=== PATIENT | female | born 1975 | race Caucasian/White ===

== ENCOUNTER 2021-06-07 20:56 | Inpatient (IN) ==
[2021-06-07 21:52] LABS: Basophils # 0.1 K/mcL (0.0-0.2); Basophils % 0.8 %; Eosinophils # 0.6 K/mcL (0.0-0.6); Eosinophils % 4.3 %; Hematocrit 31.3 % (35.3-44.9); Hemoglobin 10.9 g/dL (11.5-15.4); Immature Granulocytes % 0.3 % (0-4); Lymphocytes # 1.8 K/mcL (0.6-4.6); Lymphocytes % 13.3 %; Mean Corpuscular HGB Conc 34.8 g/dL (31.6-35.5); Mean Corpuscular Hemoglobin 30.1 pg (28.0-33.3); Mean Corpuscular Volume 86.5 fL (83.0-100.0); Monocytes # 0.8 K/mcL (0.0-1.3); Monocytes % 5.9 %; Neutrophils # 10.1 K/mcL (1.6-8.9); Platelet Count 371 K/mcL (140-400); Red Blood Count 3.62 M/mcL (3.82-4.97); Segmented Neutrophils % 75.4 %; White Blood Count 13.4 K/mcL (4.3-11.1)
[2021-06-07 22:14] LABS: Alanine Aminotransferase 15 Units/L (7-52); Albumin 3.7 g/dL (3.5-5.7); Albumin/Globulin Ratio 1.3 (1.1-2.2); Alkaline Phosphatase 65 Units/L (34-104); Aspartate Amino Transferase 11 Units/L (13-39); BUN/Creatinine Ratio 6 (6-26); Bilirubin,Indirect 0.4 mg/dL (0.0-1.0); Bilirubin,Total 0.4 mg/dL (0.3-1.0); Blood Urea Nitrogen 44 mg/dL (6-20); Calcium 8.3 mg/dL (8.6-10.3); Carbon Dioxide 17 mEq/L (23-29); Chloride 92 mEq/L (98-107); Globulin 2.8 g/dL (2.4-3.5); Glucose 164 mg/dL (70-105); Osmolality,Calculated 273 (280-300); Sodium 124 mEq/L (136-145); Total Protein 6.5 g/dL (6.4-8.9); eGFR For African Americans 8 (> 60); eGFR For Non-African Americans 6 (> 60)
[2021-06-07 22:15] LABS: Troponin I < 0.03 ng/mL (< 0.04)
[2021-06-07 22:32] LABS: Lipase 34 Units/L (11-82)
[2021-06-07 22:53] LABS: Adenovirus Not Detected (Not Detect); Bordetella Pertussis Not Detected (Not Detect); Chlamydophila pneumoniae Not Detected (Not Detect); Coronavirus 229E Not Detected (Not Detect); Coronavirus HKU1 Not Detected (Not Detect); Coronavirus NL63 Not Detected (Not Detect); Coronavirus OC43 Not Detected (Not Detect); Human Metapneumovirus Not Detected (Not Detect); Human Rhinovirus/Enterovirus Not Detected (Not Detect); Influenza A Subtype 2009 H1 Not Detected (Not Detect); Influenza B Not Detected (Not Detect); Mycoplasma pneumoniae Not Detected (Not Detect); Parainfluenza Virus 1 Not Detected (Not Detect); Parainfluenza Virus 2 Not Detected (Not Detect); Parainfluenza Virus 3 Not Detected (Not Detect); Parainfluenza Virus 4 Not Detected (Not Detect); Respiratory Syncytial Virus Not Detected (Not Detect); SARS-CoV-2 Not Detected (Not Detect)
[2021-06-07] MEDS ORDERED: Furosemide 20 MG/2 ML VIAL IVP ONE (22:59)
[2021-06-07] MEDS ORDERED: Ondansetron 4 MG/2 ML VIAL IVP PRN (23:44)
[2021-06-07] MEDS ORDERED: Naloxone 0.4 MG/ML INJ IVP PRN (23:44)
[2021-06-07] MEDS ORDERED: *HR* Dextrose 50 % in Water (Vial) 50 ML VIAL IVP PRN (23:47)
[2021-06-07] MEDS ORDERED: Dextrose Gel 15 GM/37.5 ML TUBE PO PRN ×2 (23:47)
[2021-06-07] MEDS ORDERED: D5% in Water 1,000 ML IVC PRN (23:47)
[2021-06-08] LABS: Bacteria,Urine Few per hpf (None-Few); Bilirubin,Urine Negative (Negative); Blood,Urine Moderate (Negative); Clarity,Urine Ex.Turbid (Clear); Color,Urine Yellow (Yellow); Glucose,Urine (UA) 300 mg/dL (Normal); Ketones,Urine Negative (Negative); Leukocyte Esterase,Urine Large (Negative); Nitrite,Urine Negative (Negative); PH,Urine 6.5 pH Units (5.0-8.0); Protein,Urine >=300 mg/dL (Neg-Trace); Specific Gravity,Urine 1.012 (1.010-1.025); Squamous Epithelial Cell,Urine Moderate per hpf (None-Few); Urobilinogen,Urine Normal (Normal); WBC,Urine TNTC per hpf (0-3)
[2021-06-08 00:08] LABS: Sodium, Urine 27.1 mEq/L
[2021-06-08] MEDS ORDERED: Perflutren Lipid Microsphere 1.3 ML in 0.9 % Sodium Chloride 8.7 ML IVP PRN (04:37)
[2021-06-08 05:22] LABS: Basophils # 0.1 K/mcL (0.0-0.2); Basophils % 0.8 %; Eosinophils # 0.2 K/mcL (0.0-0.6); Eosinophils % 1.9 %; Hemoglobin 10.5 g/dL (11.5-15.4); Immature Granulocytes % 0.5 % (0-4); Lymphocytes # 1.8 K/mcL (0.6-4.6); Lymphocytes % 13.8 %; Mean Corpuscular Hemoglobin 30.3 pg (28.0-33.3); Mean Corpuscular Volume 86.7 fL (83.0-100.0); Mean Platelet Volume 10.3 fL (9.4-12.4); Monocytes # 0.8 K/mcL (0.0-1.3); Monocytes % 5.8 %; Platelet Count 376 K/mcL (140-400); Red Blood Count 3.46 M/mcL (3.82-4.97); Segmented Neutrophils % 77.2 %
[2021-06-08 05:23] LABS: Protein/Creatinine Ratio,Urine 9.33 mg/mg (0.00-0.20)
[2021-06-08] MEDS: *HR* Heparin 5,000 UNIT/ML VIAL SQ SCH ×3 (05:32→21:43)
[2021-06-08] MEDS: Acetaminophen 325 MG TABLET PO PRN (05:38)
[2021-06-08 05:40] LABS: Calcium 8.9 mg/dL (8.6-10.3); Magnesium 1.9 mg/dL (1.6-2.6); Phosphorous 4.7 mg/dL (2.7-4.5); Uric Acid 6.5 mg/dL (2.3-7.6)
[2021-06-08] MEDS ORDERED: 0.9 % Sodium Chloride 250 ML IVC PRN (08:31)
[2021-06-08 08:33] LABS: Estimated Average Glucose 171 mg/dl; Hemoglobin A1C 7.6 %
[2021-06-08] MEDS ORDERED: 0.9 % Sodium Chloride 1,000 ML PRIME SCH (08:45)
[2021-06-08] MEDS ORDERED: Furosemide 40 MG/4 ML VIAL IVP SCH (09:00)
[2021-06-08] MEDS: Nicotine 21 MG PATCH.TD24 TD SCH (09:41)
[2021-06-08] MEDS: Insulin LISPRO 300 UNITS/3 ML VIAL SUBQ SCH ×4 (09:41→21:38)
[2021-06-08] MEDS: cefTRIAXone 1,000 MG in Water for inj. (sterile) 10 ML IVP SCH (09:41)
[2021-06-08 10:28] LABS: Hepatitis B Surface Antibody < 3.10 mIU/mL
[2021-06-08 10:39] LABS: Hepatitis B Surface Antigen Nonreactive (Nonreactive)
[2021-06-08 11:08] LABS: Hepatitis B Core IgM Nonreactive (Nonreactive)
[2021-06-08] MEDS ORDERED: Heparin 1,000 UNITS/500 mL 500 ML ONE (12:55)
[2021-06-08] MEDS ORDERED: Lidocaine/EPI 1:100k 1% 50 ML VIAL ONE (12:55)
[2021-06-08] MEDS ORDERED: *HR* Heparin 5,000 UNIT/ML VIAL ONE (13:26)
[2021-06-08] MEDS ORDERED: *HR* Heparin 10,000 UNIT/10 ML VIAL IV PRN (15:23)
[2021-06-08 16:29] LABS: Phosphorous 3.4 mg/dL (2.7-4.5); Uric Acid 4.1 mg/dL (2.3-7.6)
[2021-06-08] MEDS: Isosorbide MONOnitrate (24 HR) 30 MG TAB.ER.24H PO SCH (16:30)
[2021-06-08] MEDS: hydrALAZINE 25 MG TABLET PO SCH (16:30)
[2021-06-09] MEDS: Acetaminophen 325 MG TABLET PO PRN (01:21)
[2021-06-09] MEDS: hydrALAZINE 25 MG TABLET PO SCH ×3 (01:21→16:47)
[2021-06-09 05:44] LABS: Hematocrit 27.5 % (35.3-44.9); Hemoglobin 9.1 g/dL (11.5-15.4); Mean Corpuscular HGB Conc 33.1 g/dL (31.6-35.5); Mean Corpuscular Hemoglobin 29.1 pg (28.0-33.3); Mean Corpuscular Volume 87.9 fL (83.0-100.0); Platelet Count 323 K/mcL (140-400); Red Blood Count 3.13 M/mcL (3.82-4.97); Red Cell Distribution Width 13.3 % (11.5-14.5); White Blood Count 7.9 K/mcL (4.3-11.1)
[2021-06-09 05:48] LABS: Basophils # 0.1 K/mcL (0.0-0.2); Basophils % 1.2 %; Eosinophils # 0.6 K/mcL (0.0-0.6); Eosinophils % 7.5 %; Hematocrit 27.6 % (35.3-44.9); Hemoglobin 9.2 g/dL (11.5-15.4); Immature Granulocytes % 0.3 % (0-4); Lymphocytes # 1.3 K/mcL (0.6-4.6); Lymphocytes % 17.4 %; Mean Corpuscular HGB Conc 33.3 g/dL (31.6-35.5); Mean Corpuscular Hemoglobin 29.4 pg (28.0-33.3); Mean Corpuscular Volume 88.2 fL (83.0-100.0); Monocytes # 0.7 K/mcL (0.0-1.3); Neutrophils # 4.9 K/mcL (1.6-8.9); Platelet Count 319 K/mcL (140-400); Red Blood Count 3.13 M/mcL (3.82-4.97); Red Cell Distribution Width 13.2 % (11.5-14.5); Segmented Neutrophils % 64.6 %; White Blood Count 7.6 K/mcL (4.3-11.1)
[2021-06-09 06:12] LABS: Calcium 8.1 mg/dL (8.6-10.3)
[2021-06-09] MEDS: *HR* Heparin 5,000 UNIT/ML VIAL SQ SCH ×3 (06:36→20:56)
[2021-06-09] MEDS: Insulin LISPRO 300 UNITS/3 ML VIAL SUBQ SCH ×4 (06:40→20:57)
[2021-06-09] MEDS ORDERED: *HR* Heparin 10,000 UNIT/10 ML VIAL IV PRN (07:19)
[2021-06-09] MEDS ORDERED: 0.9 % Sodium Chloride 250 ML IVC PRN (07:19)
[2021-06-09] MEDS ORDERED: 0.9 % Sodium Chloride 1,000 ML PRIME SCH (07:30)
[2021-06-09] MEDS: Isosorbide MONOnitrate (24 HR) 30 MG TAB.ER.24H PO SCH (07:43)
[2021-06-09] MEDS: Nicotine 21 MG PATCH.TD24 TD SCH (07:43)
[2021-06-09] MEDS: cefTRIAXone 1,000 MG in Water for inj. (sterile) 10 ML IVP SCH (07:44)
[2021-06-09] MEDS: calcitrioL 0.25 MCG CAPSULE PO SCH (12:26)
[2021-06-09] MEDS ORDERED: Cyanocobalamin (B-12) 1,000 MCG/ML VIAL IM ONE (13:00)
[2021-06-10] MEDS: hydrALAZINE 25 MG TABLET PO SCH ×3 (00:13→13:34)
[2021-06-10 05:17] LABS: Hematocrit 28.4 % (35.3-44.9); Hemoglobin 9.6 g/dL (11.5-15.4); Mean Corpuscular HGB Conc 33.8 g/dL (31.6-35.5); Mean Corpuscular Hemoglobin 30.3 pg (28.0-33.3); Mean Corpuscular Volume 89.6 fL (83.0-100.0); Mean Platelet Volume 9.9 fL (9.4-12.4); Platelet Count 344 K/mcL (140-400); Red Blood Count 3.17 M/mcL (3.82-4.97); Red Cell Distribution Width 13.3 % (11.5-14.5); White Blood Count 7.5 K/mcL (4.3-11.1)
[2021-06-10 05:33] LABS: Potassium 3.7 mEq/L (3.5-5.1)
[2021-06-10] MEDS: *HR* Heparin 5,000 UNIT/ML VIAL SQ SCH ×3 (06:02→20:36)
[2021-06-10] MEDS: Insulin LISPRO 300 UNITS/3 ML VIAL SUBQ SCH ×4 (07:39→21:00)
[2021-06-10] MEDS: Aspirin Enteric Coated 81 MG Tablet PO SCH (07:44)
[2021-06-10] MEDS: calcitrioL 0.25 MCG CAPSULE PO SCH (08:01)
[2021-06-10] MEDS: Nicotine 21 MG PATCH.TD24 TD SCH (08:01)
[2021-06-10] MEDS ORDERED: *HR* Heparin 10,000 UNIT/10 ML VIAL IV PRN (08:42)
[2021-06-10] MEDS ORDERED: 0.9 % Sodium Chloride 250 ML IVC PRN (08:42)
[2021-06-10] MEDS ORDERED: 0.9 % Sodium Chloride 1,000 ML PRIME SCH (08:45)
[2021-06-10] MEDS ORDERED: carvediloL 6.25 MG TABLET PO SCH (09:00)
[2021-06-10] MEDS: cefTRIAXone 1,000 MG in Water for inj. (sterile) 10 ML IVP SCH (13:34)
[2021-06-10] MEDS: Isosorbide MONOnitrate (24 HR) 30 MG TAB.ER.24H PO SCH (13:34)
[2021-06-10] MEDS: carvediloL 6.25 MG TABLET PO SCH (16:25)
[2021-06-11 02:45] LABS: Hematocrit 30.4 % (35.3-44.9); Hemoglobin 10.1 g/dL (11.5-15.4); Mean Corpuscular HGB Conc 33.2 g/dL (31.6-35.5); Mean Corpuscular Hemoglobin 30.1 pg (28.0-33.3); Mean Corpuscular Volume 90.7 fL (83.0-100.0); Mean Platelet Volume 9.6 fL (9.4-12.4); Platelet Count 343 K/mcL (140-400); Red Blood Count 3.35 M/mcL (3.82-4.97); Red Cell Distribution Width 13.3 % (11.5-14.5)
[2021-06-11 03:01] LABS: Calcium 8.3 mg/dL (8.6-10.3); Potassium 3.8 mEq/L (3.5-5.1)
[2021-06-11] MEDS: *HR* Heparin 5,000 UNIT/ML VIAL SQ SCH ×3 (05:19→20:45)
[2021-06-11] MEDS: hydrALAZINE 25 MG TABLET PO SCH ×4 (05:24→23:58)
[2021-06-11] MEDS: Aspirin Enteric Coated 81 MG Tablet PO SCH (08:58)
[2021-06-11 08:59] LABS: Thyroid Stimulating Hormone 3.919 mcIU/mL (0.340-5.600)
[2021-06-11] MEDS: carvediloL 6.25 MG TABLET PO SCH ×2 (08:59→17:00)
[2021-06-11] MEDS: Isosorbide MONOnitrate (24 HR) 30 MG TAB.ER.24H PO SCH (08:59)
[2021-06-11] MEDS: calcitrioL 0.25 MCG CAPSULE PO SCH (08:59)
[2021-06-11] MEDS: cefTRIAXone 1,000 MG in Water for inj. (sterile) 10 ML IVP SCH (08:59)
[2021-06-11] MEDS: Nicotine 21 MG PATCH.TD24 TD SCH (09:02)
[2021-06-11] MEDS: Insulin LISPRO 300 UNITS/3 ML VIAL SUBQ SCH ×4 (09:05→20:45)
[2021-06-12] MEDS: *HR* Heparin 5,000 UNIT/ML VIAL SQ SCH ×3 (05:25→21:26)
[2021-06-12] MEDS ORDERED: 0.9 % Sodium Chloride 250 ML IVC PRN (07:39)
[2021-06-12] MEDS ORDERED: *HR* Heparin 10,000 UNIT/10 ML VIAL IV PRN (07:39)
[2021-06-12 08:40] LABS: Hematocrit 33.2 % (35.3-44.9); Hemoglobin 10.4 g/dL (11.5-15.4); Mean Corpuscular HGB Conc 31.3 g/dL (31.6-35.5); Mean Corpuscular Volume 92.5 fL (83.0-100.0); Mean Platelet Volume 9.8 fL (9.4-12.4); Platelet Count 369 K/mcL (140-400); Red Blood Count 3.59 M/mcL (3.82-4.97); Red Cell Distribution Width 13.4 % (11.5-14.5); White Blood Count 8.4 K/mcL (4.3-11.1)
[2021-06-12] MEDS: cefTRIAXone 1,000 MG in Water for inj. (sterile) 10 ML IVP SCH ×2 (09:00→18:13)
[2021-06-12 09:06] LABS: Chol/HDL Ratio 4.4 (0-4.9)
[2021-06-12 09:09] LABS: Calcium 8.7 mg/dL (8.6-10.3); Potassium 4.1 mEq/L (3.5-5.1)
[2021-06-12] MEDS: Isosorbide MONOnitrate (24 HR) 30 MG TAB.ER.24H PO SCH (09:10)
[2021-06-12] MEDS: Aspirin Enteric Coated 81 MG Tablet PO SCH (09:10)
[2021-06-12] MEDS: calcitrioL 0.25 MCG CAPSULE PO SCH (09:10)
[2021-06-12] MEDS: carvediloL 6.25 MG TABLET PO SCH ×2 (09:11→18:11)
[2021-06-12] MEDS: hydrALAZINE 25 MG TABLET PO SCH ×2 (09:11→18:11)
[2021-06-12] MEDS: Insulin LISPRO 300 UNITS/3 ML VIAL SUBQ SCH ×4 (09:11→21:26)
[2021-06-12] MEDS: Nicotine 21 MG PATCH.TD24 TD SCH (09:12)
[2021-06-12 13:45] LABS: INR 1.1; Prothrombin Time 12.2 Seconds (9.4-12.1)
[2021-06-12] MEDS ORDERED: 0.9 % Sodium Chloride 500 ML ONE (14:23)
[2021-06-12] MEDS ORDERED: Heparin 1,000 UNITS/500 mL 500 ML ONE (14:34)
[2021-06-12] MEDS ORDERED: Lidocaine/EPI 1:100k 1% 50 ML VIAL ONE (14:34)
[2021-06-12] MEDS ORDERED: *HR* Heparin 5,000 UNIT/ML VIAL ONE (14:41)
[2021-06-12] MEDS ORDERED: *HR* Midazolam HCl 2 MG/2 ML VIAL ONE (14:41)
[2021-06-12] MEDS ORDERED: *HR* Midazolam HCl 2 MG/2 ML VIAL IVP ONE (14:41)
[2021-06-12] MEDS ORDERED: *HR* FentaNYL (PF) 100 MCG/2 ML VIAL IVP ONE (14:41)
[2021-06-12] MEDS ORDERED: *HR* FentaNYL (PF) 100 MCG/2 ML VIAL ONE (14:41)
[2021-06-12] MEDS: Acetaminophen 325 MG TABLET PO PRN (21:26)
[2021-06-13] MEDS: hydrALAZINE 25 MG TABLET PO SCH ×3 (00:04→17:05)
[2021-06-13] MEDS: *HR* Heparin 5,000 UNIT/ML VIAL SQ SCH ×3 (06:48→21:14)
[2021-06-13 07:12] LABS: Hematocrit 35.1 % (35.3-44.9); Mean Corpuscular HGB Conc 31.3 g/dL (31.6-35.5); Mean Corpuscular Hemoglobin 29.3 pg (28.0-33.3); Mean Corpuscular Volume 93.4 fL (83.0-100.0); Mean Platelet Volume 9.8 fL (9.4-12.4); Platelet Count 372 K/mcL (140-400); Red Blood Count 3.76 M/mcL (3.82-4.97); Red Cell Distribution Width 13.5 % (11.5-14.5); White Blood Count 8.5 K/mcL (4.3-11.1)
[2021-06-13 07:34] LABS: Calcium 8.9 mg/dL (8.6-10.3); Potassium 4.2 mEq/L (3.5-5.1)
[2021-06-13] MEDS: Nicotine 21 MG PATCH.TD24 TD SCH (11:00)
[2021-06-13] MEDS: carvediloL 6.25 MG TABLET PO SCH ×2 (11:01→17:05)
[2021-06-13] MEDS: calcitrioL 0.25 MCG CAPSULE PO SCH (11:01)
[2021-06-13] MEDS: Isosorbide MONOnitrate (24 HR) 30 MG TAB.ER.24H PO SCH (11:01)
[2021-06-13] MEDS: Aspirin Enteric Coated 81 MG Tablet PO SCH (11:02)
[2021-06-13] MEDS: Insulin LISPRO 300 UNITS/3 ML VIAL SUBQ SCH ×4 (11:02→21:13)
[2021-06-13] MEDS ORDERED: *HR* LORazepam 2 MG/ML VIAL IVP PRN ×2 (16:55→21:54)
[2021-06-14] MEDS: hydrALAZINE 25 MG TABLET PO SCH ×4 (01:29→23:21)
[2021-06-14 02:13] LABS: Hematocrit 31.6 % (35.3-44.9); Hemoglobin 9.9 g/dL (11.5-15.4); Mean Corpuscular HGB Conc 31.3 g/dL (31.6-35.5); Mean Corpuscular Hemoglobin 29.2 pg (28.0-33.3); Mean Corpuscular Volume 93.2 fL (83.0-100.0); Mean Platelet Volume 9.6 fL (9.4-12.4); Platelet Count 343 K/mcL (140-400); Red Blood Count 3.39 M/mcL (3.82-4.97); Red Cell Distribution Width 13.3 % (11.5-14.5); White Blood Count 9.3 K/mcL (4.3-11.1)
[2021-06-14 02:14] LABS: Basophils # 0.1 K/mcL (0.0-0.2); Basophils % 1.3 %; Eosinophils # 0.7 K/mcL (0.0-0.6); Eosinophils % 7.8 %; Hematocrit 31.9 % (35.3-44.9); Hemoglobin 10.1 g/dL (11.5-15.4); Immature Granulocytes % 0.3 % (0-4); Lymphocytes # 2.3 K/mcL (0.6-4.6); Lymphocytes % 24.7 %; Mean Corpuscular HGB Conc 31.7 g/dL (31.6-35.5); Mean Corpuscular Hemoglobin 29.4 pg (28.0-33.3); Mean Corpuscular Volume 92.7 fL (83.0-100.0); Mean Platelet Volume 9.6 fL (9.4-12.4); Monocytes # 0.9 K/mcL (0.0-1.3); Monocytes % 9.5 %; Neutrophils # 5.2 K/mcL (1.6-8.9); Platelet Count 340 K/mcL (140-400); Red Blood Count 3.44 M/mcL (3.82-4.97); Red Cell Distribution Width 13.3 % (11.5-14.5); Segmented Neutrophils % 56.4 %; White Blood Count 9.2 K/mcL (4.3-11.1)
[2021-06-14 02:28] LABS: Calcium 8.7 mg/dL (8.6-10.3); Potassium 3.9 mEq/L (3.5-5.1)
[2021-06-14 02:31] LABS: Albumin 3.4 g/dL (3.5-5.7); Albumin/Globulin Ratio 1.4 (1.1-2.2); Bilirubin,Total 0.3 mg/dL (0.3-1.0); Calcium 8.6 mg/dL (8.6-10.3); Globulin 2.5 g/dL (2.4-3.5); Potassium 3.8 mEq/L (3.5-5.1); Total Protein 5.9 g/dL (6.4-8.9)
[2021-06-14] MEDS: *HR* Heparin 5,000 UNIT/ML VIAL SQ SCH ×3 (05:24→21:31)
[2021-06-14] MEDS: Insulin LISPRO 300 UNITS/3 ML VIAL SUBQ SCH ×4 (09:12→21:52)
[2021-06-14] MEDS: carvediloL 6.25 MG TABLET PO SCH ×2 (09:13→16:15)
[2021-06-14] MEDS: calcitrioL 0.25 MCG CAPSULE PO SCH (09:13)
[2021-06-14] MEDS: Isosorbide MONOnitrate (24 HR) 30 MG TAB.ER.24H PO SCH (09:13)
[2021-06-14] MEDS: Aspirin Enteric Coated 81 MG Tablet PO SCH (09:13)
[2021-06-14] MEDS: Nicotine 21 MG PATCH.TD24 TD SCH (09:13)
[2021-06-15] MEDS: *HR* Heparin 5,000 UNIT/ML VIAL SQ SCH ×3 (05:23→20:15)
[2021-06-15 05:31] LABS: Hemoglobin 10.2 g/dL (11.5-15.4); Mean Corpuscular HGB Conc 32.9 g/dL (31.6-35.5); Mean Corpuscular Hemoglobin 30.1 pg (28.0-33.3); Mean Corpuscular Volume 91.4 fL (83.0-100.0); Platelet Count 397 K/mcL (140-400); Red Blood Count 3.39 M/mcL (3.82-4.97); Red Cell Distribution Width 13.3 % (11.5-14.5); White Blood Count 10.3 K/mcL (4.3-11.1)
[2021-06-15 05:47] LABS: Calcium 8.7 mg/dL (8.6-10.3)
[2021-06-15] MEDS ORDERED: 0.9 % Sodium Chloride 250 ML IVC PRN (07:32)
[2021-06-15] MEDS ORDERED: *HR* Heparin 10,000 UNIT/10 ML VIAL IV PRN (07:32)
[2021-06-15] MEDS ORDERED: 0.9 % Sodium Chloride 1,000 ML PRIME SCH (07:45)
[2021-06-15] MEDS: Insulin LISPRO 300 UNITS/3 ML VIAL SUBQ SCH ×4 (08:06→22:00)
[2021-06-15] MEDS: carvediloL 6.25 MG TABLET PO SCH ×2 (08:38→18:33)
[2021-06-15] MEDS: calcitrioL 0.25 MCG CAPSULE PO SCH (08:39)
[2021-06-15] MEDS: Isosorbide MONOnitrate (24 HR) 30 MG TAB.ER.24H PO SCH (08:39)
[2021-06-15] MEDS: Nicotine 21 MG PATCH.TD24 TD SCH (08:39)
[2021-06-15] MEDS: Aspirin Enteric Coated 81 MG Tablet PO SCH (08:39)
[2021-06-15] MEDS: hydrALAZINE 25 MG TABLET PO SCH ×2 (08:39→18:33)
[2021-06-16] MEDS: hydrALAZINE 25 MG TABLET PO SCH ×2 (01:20→09:38)
[2021-06-16 01:55] LABS: Hematocrit 32.3 % (35.3-44.9); Hemoglobin 10.8 g/dL (11.5-15.4); Mean Corpuscular HGB Conc 33.4 g/dL (31.6-35.5); Mean Corpuscular Hemoglobin 30.3 pg (28.0-33.3); Mean Corpuscular Volume 90.5 fL (83.0-100.0); Mean Platelet Volume 9.6 fL (9.4-12.4); Platelet Count 373 K/mcL (140-400); Red Blood Count 3.57 M/mcL (3.82-4.97); Red Cell Distribution Width 13.2 % (11.5-14.5); White Blood Count 11.2 K/mcL (4.3-11.1)
[2021-06-16 02:16] LABS: Calcium 8.5 mg/dL (8.6-10.3); Potassium 3.5 mEq/L (3.5-5.1)
[2021-06-16 05:13] VITALS: PULSE 84; TEMP 97.9; O2SAT 97
[2021-06-16] MEDS: *HR* Heparin 5,000 UNIT/ML VIAL SQ SCH (06:15)
[2021-06-16] MEDS ORDERED: ALPRAZolam 0.25 MG TABLET PO PRN (08:07)
[2021-06-16] MEDS: Insulin LISPRO 300 UNITS/3 ML VIAL SUBQ SCH (09:35)
[2021-06-16] MEDS: Aspirin Enteric Coated 81 MG Tablet PO SCH (09:38)
[2021-06-16] MEDS: calcitrioL 0.25 MCG CAPSULE PO SCH (09:38)
[2021-06-16] MEDS: Nicotine 21 MG PATCH.TD24 TD SCH (09:38)
[2021-06-16] MEDS: Isosorbide MONOnitrate (24 HR) 30 MG TAB.ER.24H PO SCH (09:38)
[2021-06-16] MEDS: carvediloL 6.25 MG TABLET PO SCH (09:38)
[2021-06-16 10:52] VITALS: BP 152/97
== END 2021-06-16 12:48 | disposition home or self-care (01) | DRG 469 ==
LOC: 2NENU 20:56 → EMEROOARM 20:56 → 2NENU 06-08 00:52 → SUATTDRO 06-08 15:41
PROVIDERS: ADMIT Family Medicine; ATTEND Student in an Organized Health Care Education/Training Program
PROC: IRPERMA (2021-06-12 11:00)

== ENCOUNTER 2022-03-08 06:44 | Inpatient (IN) ==
[2022-03-08] MEDS ORDERED: 0.9 % Sodium Chloride 1,000 ML IVC ONE (07:06)
[2022-03-08] MEDS ORDERED: Metoclopramide 10 MG/2 ML VIAL IVP ONE (07:06)
[2022-03-08 07:41] LABS: Calcium 15.8 mg/dL (8.6-10.3)
[2022-03-08] MEDS ORDERED: Naloxone 0.4 MG/ML INJ IVP PRN (08:15)
[2022-03-08] MEDS ORDERED: Ondansetron 4 MG/2 ML VIAL IVP PRN (08:15)
[2022-03-08] MEDS ORDERED: 0.9 % Sodium Chloride 500 ML IVC ONE (08:42)
[2022-03-08 09:22] LABS: Bilirubin,Urine Negative (Negative); Blood,Urine Small (Negative); Clarity,Urine Ex.Turbid (Clear); Color,Urine Yellow (Yellow); Glucose,Urine (UA) 50 mg/dL (Normal); Ketones,Urine Negative (Negative); Leukocyte Esterase,Urine Large (Negative); Nitrite,Urine Negative (Negative); Protein,Urine >=300 mg/dL (Neg-Trace); Urobilinogen,Urine Normal (Normal)
[2022-03-08 09:33] LABS: Bacteria,Urine Many per hpf (None-Few); Squamous Epithelial Cell,Urine Many per hpf (None-Few); WBC,Urine TNTC per hpf (0-3)
[2022-03-08 09:34] LABS: Transitional Epi Cells,Urine Few per hpf (None-Few)
[2022-03-08 10:48] LABS: Magnesium 2.1 mg/dL (1.6-2.6); Phosphorous 5.3 mg/dL (2.7-4.5)
[2022-03-08 10:56] LABS: Basophils # 0.1 K/mcL (0.0-0.2); Basophils % 0.3 %; Eosinophils # 0.1 K/mcL (0.0-0.6); Eosinophils % 0.5 %; Hematocrit 26.1 % (35.3-44.9); Hemoglobin 9.5 g/dL (11.5-15.4); Lymphocytes # 1.7 K/mcL (0.6-4.6); Lymphocytes % 7.7 %; Mean Corpuscular HGB Conc 36.4 g/dL (31.6-35.5); Mean Corpuscular Hemoglobin 32.3 pg (28.0-33.3); Mean Corpuscular Volume 88.8 fL (83.0-100.0); Mean Platelet Volume 9.6 fL (9.4-12.4); Monocytes # 1.5 K/mcL (0.0-1.3); Monocytes % 6.7 %; Neutrophils # 18.6 K/mcL (1.6-8.9); Platelet Count 408 K/mcL (140-400); Red Blood Count 2.94 M/mcL (3.82-4.97); Red Cell Distribution Width 12.4 % (11.5-14.5); Segmented Neutrophils % 83.8 %; White Blood Count 22.2 K/mcL (4.3-11.1)
[2022-03-08] MEDS: *HR* Heparin 5,000 UNIT/ML VIAL SQ SCH ×2 (14:04→21:13)
[2022-03-08] MEDS: Metoclopramide 10 MG/2 ML VIAL IVP SCH ×2 (14:04→21:10)
[2022-03-08] MEDS ORDERED: Ondansetron ODT 4 MG TAB.RAPDIS SL STA (14:05)
[2022-03-08] MEDS ORDERED: D5% in Water 1,000 ML IVC PRN (15:01)
[2022-03-08] MEDS ORDERED: *HR* Dextrose 50 % in Water (Syg) 50 ML SYRINGE IVP PRN (15:01)
[2022-03-08] MEDS ORDERED: Dextrose 4 GM Chewable Tablets PO PRN ×2 (15:01)
[2022-03-08 15:03] LABS: Calcium 14.2 mg/dL (8.6-10.3); Potassium 3.3 mEq/L (3.5-5.1)
[2022-03-08] MEDS: Insulin LISPRO 300 UNITS/3 ML VIAL SUBQ SCH (15:48)
[2022-03-08] MEDS: carvediloL 25 MG TABLET PO SCH (17:10)
[2022-03-08] MEDS: 0.9 % Sodium Chloride 1,000 ML IVC SCH (17:11)
[2022-03-08] MEDS ORDERED: Famotidine 20 MG/2 ML VIAL IVP ONE (17:19)
[2022-03-08] MEDS ORDERED: Metoclopramide 10 MG/2 ML VIAL IVP SCH (18:00)
[2022-03-08 19:00] LABS: Calcium 14.4 mg/dL (8.6-10.3)
[2022-03-08 20:31] LABS: Estimated Average Glucose 177 mg/dl; Hemoglobin A1C 7.8 %
[2022-03-08] MEDS: hydrALAZINE 25 MG TABLET PO SCH (21:15)
[2022-03-08] MEDS: Insulin DETEMIR 100 UNIT/ML X5UNITS SUBQ SCH (21:20)
[2022-03-09 01:30] LABS: Basophils % 0.2 %; Eosinophils # 0.1 K/mcL (0.0-0.6); Eosinophils % 0.6 %; Hematocrit 24.3 % (35.3-44.9); Hemoglobin 8.9 g/dL (11.5-15.4); Immature Granulocytes % 0.5 % (0-4); Lymphocytes # 1.7 K/mcL (0.6-4.6); Lymphocytes % 9.6 %; Mean Corpuscular HGB Conc 36.6 g/dL (31.6-35.5); Mean Corpuscular Hemoglobin 32.4 pg (28.0-33.3); Mean Corpuscular Volume 88.4 fL (83.0-100.0); Mean Platelet Volume 9.4 fL (9.4-12.4); Monocytes # 1.5 K/mcL (0.0-1.3); Monocytes % 8.6 %; Neutrophils # 14.5 K/mcL (1.6-8.9); Platelet Count 387 K/mcL (140-400); Red Blood Count 2.75 M/mcL (3.82-4.97); Red Cell Distribution Width 12.3 % (11.5-14.5); Segmented Neutrophils % 80.5 %
[2022-03-09 01:51] LABS: Albumin 3.3 g/dL (3.5-5.7); Albumin/Globulin Ratio 1.3 (1.1-2.2); Bilirubin,Total 0.3 mg/dL (0.3-1.0); Calcium 13.2 mg/dL (8.6-10.3); Globulin 2.5 g/dL (2.4-3.5); Total Protein 5.8 g/dL (6.4-8.9)
[2022-03-09] MEDS: *HR* Heparin 5,000 UNIT/ML VIAL SQ SCH ×3 (06:46→21:34)
[2022-03-09] MEDS: Metoclopramide 10 MG/2 ML VIAL IVP SCH (06:48)
[2022-03-09] MEDS: Insulin LISPRO 300 UNITS/3 ML VIAL SUBQ SCH ×3 (08:04→16:44)
[2022-03-09] MEDS: hydrALAZINE 25 MG TABLET PO SCH ×3 (08:04→19:54)
[2022-03-09] MEDS: carvediloL 25 MG TABLET PO SCH ×2 (08:04→16:58)
[2022-03-09] MEDS: Aspirin Enteric Coated 81 MG Tablet PO SCH (08:04)
[2022-03-09] MEDS: amLODIPine 5 MG TABLET PO SCH (08:04)
[2022-03-09] MEDS: Isosorbide MONOnitrate (24 HR) 30 MG TAB.ER.24H PO SCH (08:04)
[2022-03-09] MEDS: 0.9 % Sodium Chloride 1,000 ML IVC SCH (08:04)
[2022-03-09] MEDS: Acetaminophen 325 MG TABLET PO PRN ×2 (08:09→19:54)
[2022-03-09 10:09] LABS: Calcium 12.8 mg/dL (8.6-10.3)
[2022-03-09 12:50] LABS: Hepatitis B Surface Antibody < 3.10 mIU/mL
[2022-03-09 13:01] LABS: Hepatitis B Surface Antigen Nonreactive (Nonreactive)
[2022-03-09 14:54] LABS: Calcium 12.2 mg/dL (8.6-10.3); Potassium 4.4 mEq/L (3.5-5.1)
[2022-03-09] MEDS ORDERED: Perit. Dialysis with Dex 1.5 % 12,000 ML PERITONEAL ONE (17:30)
[2022-03-09 19:35] LABS: Calcium 11.6 mg/dL (8.6-10.3); Potassium 3.1 mEq/L (3.5-5.1)
[2022-03-09] MEDS: Insulin DETEMIR 100 UNIT/ML X5UNITS SUBQ SCH (19:54)
[2022-03-09 23:07] LABS: Calcium 11.5 mg/dL (8.6-10.3); Potassium 3.9 mEq/L (3.5-5.1)
[2022-03-10] MEDS: 0.9 % Sodium Chloride 1,000 ML IVC SCH ×3 (01:08→16:14)
[2022-03-10] MEDS: Acetaminophen 325 MG TABLET PO PRN ×3 (04:10→20:19)
[2022-03-10] MEDS: *HR* Heparin 5,000 UNIT/ML VIAL SQ SCH ×3 (05:53→20:24)
[2022-03-10 05:57] LABS: Hematocrit 21.6 % (35.3-44.9); Hemoglobin 8.1 g/dL (11.5-15.4); Mean Corpuscular Hemoglobin 33.3 pg (28.0-33.3); Mean Corpuscular Volume 88.9 fL (83.0-100.0); Platelet Count 358 K/mcL (140-400); Red Blood Count 2.43 M/mcL (3.82-4.97); Red Cell Distribution Width 12.2 % (11.5-14.5); White Blood Count 14.5 K/mcL (4.3-11.1)
[2022-03-10 06:35] LABS: Calcium 11.2 mg/dL (8.6-10.3)
[2022-03-10 06:53] LABS: Mean Corpuscular HGB Conc 37.5 g/dL (31.6-35.5)
[2022-03-10] MEDS: Insulin LISPRO 300 UNITS/3 ML VIAL SUBQ SCH ×3 (07:55→16:40)
[2022-03-10] MEDS: Aspirin Enteric Coated 81 MG Tablet PO SCH (08:47)
[2022-03-10] MEDS: amLODIPine 5 MG TABLET PO SCH (08:47)
[2022-03-10] MEDS: hydrALAZINE 25 MG TABLET PO SCH ×3 (08:47→20:19)
[2022-03-10] MEDS: Isosorbide MONOnitrate (24 HR) 30 MG TAB.ER.24H PO SCH (08:47)
[2022-03-10] MEDS: carvediloL 25 MG TABLET PO SCH ×2 (08:47→16:13)
[2022-03-10 13:33] LABS: Calcium 10.5 mg/dL (8.6-10.3); Potassium 3.7 mEq/L (3.5-5.1)
[2022-03-10 16:59] LABS: Calcium 10.2 mg/dL (8.6-10.3)
[2022-03-10] MEDS ORDERED: Perit. Dialysis with Dex 2.5 % 6,000 ML PERITONEAL ONE (19:00)
[2022-03-10] MEDS ORDERED: Perit. Dialysis with Dex 1.5 % 6,000 ML PERITONEAL ONE (19:00)
[2022-03-10] MEDS: Insulin DETEMIR 100 UNIT/ML X5UNITS SUBQ SCH (20:24)
[2022-03-10 21:17] LABS: Calcium 10.2 mg/dL (8.6-10.3); Potassium 4.1 mEq/L (3.5-5.1)
[2022-03-11 05:37] LABS: Calcium 9.7 mg/dL (8.6-10.3); Potassium 3.5 mEq/L (3.5-5.1)
[2022-03-11 05:39] LABS: Hematocrit 19.9 % (35.3-44.9); Hemoglobin 7.3 g/dL (11.5-15.4); Mean Corpuscular HGB Conc 36.7 g/dL (31.6-35.5); Mean Corpuscular Hemoglobin 32.7 pg (28.0-33.3); Mean Corpuscular Volume 89.2 fL (83.0-100.0); Mean Platelet Volume 9.6 fL (9.4-12.4); Platelet Count 319 K/mcL (140-400); Red Blood Count 2.23 M/mcL (3.82-4.97); Red Cell Distribution Width 12.5 % (11.5-14.5); White Blood Count 12.6 K/mcL (4.3-11.1)
[2022-03-11] MEDS: 0.9 % Sodium Chloride 1,000 ML IVC SCH (05:55)
[2022-03-11] MEDS: *HR* Heparin 5,000 UNIT/ML VIAL SQ SCH ×3 (05:55→21:44)
[2022-03-11] MEDS: Acetaminophen 325 MG TABLET PO PRN ×2 (05:55→14:35)
[2022-03-11] MEDS: Insulin LISPRO 300 UNITS/3 ML VIAL SUBQ SCH ×3 (06:58→16:18)
[2022-03-11] MEDS: carvediloL 25 MG TABLET PO SCH ×2 (09:12→17:00)
[2022-03-11] MEDS: amLODIPine 5 MG TABLET PO SCH (09:12)
[2022-03-11] MEDS: Aspirin Enteric Coated 81 MG Tablet PO SCH (09:12)
[2022-03-11] MEDS: Isosorbide MONOnitrate (24 HR) 30 MG TAB.ER.24H PO SCH (09:12)
[2022-03-11] MEDS: hydrALAZINE 25 MG TABLET PO SCH ×3 (09:12→19:33)
[2022-03-11] MEDS ORDERED: *HR* LORazepam 0.5 MG TABLET PO PRN (11:28)
[2022-03-11] MEDS: *HR* OxyCODONE Immed Rel 5 MG TABLET PO PRN (17:00)
[2022-03-11] MEDS ORDERED: Perit. Dialysis with Dex 2.5 % 12,000 ML PERITONEAL ONE (18:00)
[2022-03-11] MEDS: Insulin DETEMIR 100 UNIT/ML X5UNITS SUBQ SCH (19:33)
[2022-03-12 02:48] LABS: Hematocrit 20.4 % (35.3-44.9); Mean Corpuscular HGB Conc 34.3 g/dL (31.6-35.5); Mean Corpuscular Hemoglobin 31.8 pg (28.0-33.3); Mean Corpuscular Volume 92.7 fL (83.0-100.0); Mean Platelet Volume 9.9 fL (9.4-12.4); Platelet Count 332 K/mcL (140-400); Red Cell Distribution Width 12.7 % (11.5-14.5); White Blood Count 11.3 K/mcL (4.3-11.1)
[2022-03-12 03:00] LABS: Albumin/Globulin Ratio 1.3 (1.1-2.2); Bilirubin,Total 0.2 mg/dL (0.3-1.0); Calcium 9.7 mg/dL (8.6-10.3); Globulin 2.3 g/dL (2.4-3.5); Potassium 3.9 mEq/L (3.5-5.1); Total Protein 5.3 g/dL (6.4-8.9)
[2022-03-12] MEDS: *HR* Heparin 5,000 UNIT/ML VIAL SQ SCH ×3 (05:12→21:01)
[2022-03-12] MEDS: Insulin LISPRO 300 UNITS/3 ML VIAL SUBQ SCH ×3 (07:30→15:54)
[2022-03-12] MEDS: amLODIPine 5 MG TABLET PO SCH (08:00)
[2022-03-12] MEDS: hydrALAZINE 25 MG TABLET PO SCH ×3 (08:00→21:00)
[2022-03-12] MEDS: Isosorbide MONOnitrate (24 HR) 30 MG TAB.ER.24H PO SCH (08:00)
[2022-03-12] MEDS: *HR* OxyCODONE Immed Rel 5 MG TABLET PO PRN (08:00)
[2022-03-12] MEDS: Aspirin Enteric Coated 81 MG Tablet PO SCH (08:00)
[2022-03-12] MEDS: carvediloL 25 MG TABLET PO SCH ×2 (08:00→16:01)
[2022-03-12] MEDS ORDERED: 0.9 % Sodium Chloride 250 ML IVC SCH (08:45)
[2022-03-12] MEDS: Acetaminophen 325 MG TABLET PO PRN (17:50)
[2022-03-12 18:14] LABS: Hematocrit 25.6 % (35.3-44.9)
[2022-03-12 18:16] LABS: Hemoglobin 8.8 g/dL (11.5-15.4)
[2022-03-12] MEDS ORDERED: Perit. Dialysis with Dex 2.5 % 6,000 ML PERITONEAL ONE (19:00)
[2022-03-12] MEDS ORDERED: Perit. Dialysis with Dex 1.5 % 6,000 ML PERITONEAL ONE (19:00)
[2022-03-12 19:11] LABS: Folate > 22.3 ng/mL (3.0-16.0); Vitamin B12 699 pg/mL (250-1100)
[2022-03-12] MEDS: Insulin DETEMIR 100 UNIT/ML X5UNITS SUBQ SCH (21:01)
[2022-03-12] MEDS ORDERED: *HR* HYDROcodone/Acet 5/325 mg TABLET PO ONE (22:10)
[2022-03-12 22:34] LABS: % Iron Saturation 17 % (15-50); Iron 39 mcg/dL (50-170); Transferrin 163 mg/dL (203-362)
[2022-03-12 22:53] LABS: Ferritin 579 ng/mL (10-120)
[2022-03-13 03:10] LABS: Hematocrit 23.4 % (35.3-44.9); Hemoglobin 8.1 g/dL (11.5-15.4); Mean Corpuscular HGB Conc 34.6 g/dL (31.6-35.5); Mean Corpuscular Hemoglobin 32.4 pg (28.0-33.3); Mean Corpuscular Volume 93.6 fL (83.0-100.0); Mean Platelet Volume 9.6 fL (9.4-12.4); Platelet Count 360 K/mcL (140-400); Red Cell Distribution Width 13.2 % (11.5-14.5); White Blood Count 11.8 K/mcL (4.3-11.1)
[2022-03-13 03:33] LABS: Calcium 9.6 mg/dL (8.6-10.3); Potassium 4.9 mEq/L (3.5-5.1)
[2022-03-13] MEDS: *HR* Heparin 5,000 UNIT/ML VIAL SQ SCH (05:30)
[2022-03-13] MEDS: Insulin LISPRO 300 UNITS/3 ML VIAL SUBQ SCH (07:08)
[2022-03-13] MEDS: amLODIPine 5 MG TABLET PO SCH (08:05)
[2022-03-13] MEDS: hydrALAZINE 25 MG TABLET PO SCH (08:05)
[2022-03-13] MEDS: carvediloL 25 MG TABLET PO SCH (08:05)
[2022-03-13] MEDS: Aspirin Enteric Coated 81 MG Tablet PO SCH (08:06)
[2022-03-13] MEDS: Isosorbide MONOnitrate (24 HR) 30 MG TAB.ER.24H PO SCH (08:06)
[2022-03-13] MEDS: Acetaminophen 325 MG TABLET PO PRN (08:08)
[2022-03-13 10:32] VITALS: BP 122/68; PULSE 74; TEMP 97.8; O2SAT 97
== END 2022-03-13 11:46 | disposition home or self-care (01) | DRG 426 ==
LOC: EMEROOARM 06:44 → 2ANU 06:44 → SUATTDRO 08:05 → 2ANU 09:18
PROVIDERS: ADMIT Internal Medicine; ATTEND Family Medicine